=== PATIENT | female | born 1960 | race Caucasian/White ===

== ENCOUNTER 2024-05-31 21:56 | Emergency (ER) | payer OTHER, MEDICAID ==
[~2024-05-31] VITALS: Ht 154.9 cm; Wt 114.1 kg
--- NOTE | 2024-05-31 22:22 | ED.PDOC ---
HPI Comments 64y M who presents to the ED for chief complaint of chest pain. Pt states she has been having chest pain for the past 1 days. Pt states the pain is constant, sub-sternal, with pain radiating to the back, with associated exacerbating factor of exertion and no relieving factors. Pt states it feels like "elephant is sitting on her chest." Pt denies any past cardiac history but states she was recently evaluated by plastics plater after PCP referred pt after having abnormal EKG. Pt states she has stress test and full evaluation done. Pt otherwise has noted BP of 159/100 with all other vitals in normal range. Pt otherwise denies any other symptoms at this time. 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 History: Denies all REFINERY OPERATOR ALKYLATION Hx Family History Family History: Unknown Social History Smoker: Non-Smoker Alcohol: Denies ETOH Use Drugs: Denies Drug Use Lives In: Home Constitutional: denies: chills, diaphoresis, fatigue, fever, malaise, sweats, weakness, others EENTM: denies: blurred vision, double vision, ear bleeding, ear discharge, ear drainage, ear pain, ear ringing, eye pain, eye redness, hearing loss, mouth pain, mouth swelling, nasal discharge, nose bleeding, nose congestion, nose pain, photophobia, tearing, throat pain, throat swelling, voice changes, others Respiratory: denies: cough, hemoptysis, orthopnea, SOB at rest, shortness of breath, SOB with excertion, stridor, wheezing, others Cardiovascular: reports: chest pain; denies: dizzy spells, diaphoresis, Dyspnea on exertion, edema, irregular heart beat, left arm pain, lightheadedness, palpitations, PND, syncope, others Gastrointestinal: denies: abdomen distended, abdominal pain, blood streaked bowels, constipated, diarrhea, dysphagia, difficulty swallowing, hematemesis, melena, nausea, poor appetite, poor fluid intake, rectal bleeding, rectal pain, vomiting, others Genitourinary: denies: abnormal vagina bleeding, burning, dyspareunia, dysuria, flank pain, frequency, hematuria, incontinence, pain, , vagina discharge, urgency, others Neurological: denies: dizziness, fainting, headache, left sided numbness, left sided weakness, numbness, paresthesia, pre-existing deficit, right sided numbness, right sided weakness, seizure, speech problems, tingling, tremors, weakness, others Musculoskeletal: denies: back pain, gout, joint pain, joint swelling, muscle pain, muscle stiffness, neck pain, others Integumetry: denies: bruises, change in color, change in hair/nails, dryness, laceration, lesions, lumps, rash, wounds, others Allergic/Immunocompromised: denies: Difficulty Healing, Frequent Infections, Hives, Itching, others Hematologic/Lymphatic: denies: anemia, blood clots, easy bleeding, easy bruising, swollen glands, others Endocrine: denies: excessive hunger, excessive sweating, excessive thirst, excessive urination, flushing, intolerance to cold, intolerance to heat, unexplained weight gain, unexplained weight loss, others Psychiatric: denies: anxiety, bipolar disorder, depression, hopeless, panic disorder, schizophrenia, sleepless, suicidal, others Was a procedure done? Was a procedure done?: No CP Differential Dx Differential Diagnosis: A-fib, A-Flutter, Angina, Anxiety / Panic Attack, Electrolyte Disorder, Heart Failure, PVC's Other Differential Diagnosis acute coronary syndrome. Differential Diagnosis: Chest Wall Pain, Costochondritis X-Ray, Labs, Meds, VS Vital Signs Date Time Temp Pulse Resp B/P (MAP) Pulse Ox O2 Delivery O2 Flow Rate FiO2 05/31/24 22:00 97.5 59 20 159/100 (119) 98 Lab Test 05/31/24 22:04 Range/Units Troponin I High Sensitivity Pending Time of 1ST Reevaluation: 22:50 Reevaluation 1ST: Unchanged Patient Education/Counseling: Diagnosis, Treatment Family Education/Counseling: No Family Present Stability Stability form required: No Heart Score Heart Score: Heart Score Response (Comments) Value History Slightly Suspicious 0 Age 45-64 1 Risk Factors No known risk factors 0 Total 1 I personally scribed for ADEBAYO POZO MD ([email or web address]) on 05/31/24 at 22:22. Electronically submitted by Ciro Lopez ([email or web address]). I personally scribed for ADEBAYO POZO MD ([email or web address]) on 05/31/24 at 22:24. Electronically submitted by Ciro Lopez ([email or web address]). ADEBAYO POZO MD May 31, 2024 22:22
--- NOTE | 2024-05-31 22:26 | ED.PDOC ---
HPI Comments 64y F who presents to the ED for chief complaint of chest pain. Pt states she has been having chest pain for the past 1 days. Pt states the pain is constant, sub-sternal, with pain radiating to the back, with associated exacerbating factor of exertion and no relieving factors. Pt states it feels like "elephant is sitting on her chest." Pt denies any past cardiac history but states she was recently evaluated by retaining room cutter after PCP referred pt after having abnormal EKG. Pt states she has stress test and full evaluation done. Pt otherwise has noted BP of 159/100 with all other vitals in normal range. Pt otherwise denies any other symptoms at this time. 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: 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 all TREE PULLER Hx Family History Family History: Unknown Social History Smoker: Non-Smoker Alcohol: Denies ETOH Use Drugs: Denies Drug Use Lives In: Home Constitutional: denies: chills, diaphoresis, fatigue, fever, malaise, sweats, weakness, others EENTM: denies: blurred vision, double vision, ear bleeding, ear discharge, ear drainage, ear pain, ear ringing, eye pain, eye redness, hearing loss, mouth pain, mouth swelling, nasal discharge, nose bleeding, nose congestion, nose pain, photophobia, tearing, throat pain, throat swelling, voice changes, others Respiratory: denies: cough, hemoptysis, orthopnea, SOB at rest, shortness of breath, SOB with excertion, stridor, wheezing, others Cardiovascular: reports: chest pain; denies: dizzy spells, diaphoresis, Dyspnea on exertion, edema, irregular heart beat, left arm pain, lightheadedness, palpitations, PND, syncope, others Gastrointestinal: denies: abdomen distended, abdominal pain, blood streaked bowels, constipated, diarrhea, dysphagia, difficulty swallowing, hematemesis, melena, nausea, poor appetite, poor fluid intake, rectal bleeding, rectal pain, vomiting, others Genitourinary: denies: abnormal vagina bleeding, burning, dyspareunia, dysuria, flank pain, frequency, hematuria, incontinence, pain, , vagina discharge, urgency, others Neurological: denies: dizziness, fainting, headache, left sided numbness, left sided weakness, numbness, paresthesia, pre-existing deficit, right sided numbness, right sided weakness, seizure, speech problems, tingling, tremors, weakness, others Musculoskeletal: denies: back pain, gout, joint pain, joint swelling, muscle pain, muscle stiffness, neck pain, others Integumetry: denies: bruises, change in color, change in hair/nails, dryness, laceration, lesions, lumps, rash, wounds, others Allergic/Immunocompromised: denies: Difficulty Healing, Frequent Infections, Hives, Itching, others Hematologic/Lymphatic: denies: anemia, blood clots, easy bleeding, easy bruising, swollen glands, others Endocrine: denies: excessive hunger, excessive sweating, excessive thirst, excessive urination, flushing, intolerance to cold, intolerance to heat, unexplained weight gain, unexplained weight loss, others Psychiatric: denies: anxiety, bipolar disorder, depression, hopeless, panic disorder, schizophrenia, sleepless, suicidal, others All Other Systems: Reviewed and Negative Physical Exam General Appearance: Moderate Distress (Due to chest pain concerns.), Obese HEENT: Normal ENT Inspection, Pharynx Normal, TMs Normal Neck: Full Range of Motion, Non-Tender, Normal, Normal Inspection Respiratory: Chest Non-Tender, Lungs Clear, No Accessory Muscle Use, No Respiratory Distress, Normal Breath Sounds Cardiovascular: Bradycardia, No Edema, No JVD, No Murmur, No Gallop, Normal Peripheral Pulses Breast Exam: Deferred Gastrointestinal: No Organomegaly, Non Tender, No Pulsatile Mass, Normal Bowel Sounds, Soft Genitalia: Deferred Pelvic: Deferred Rectal: Deferred Extremities: No calf tenderness, Normal capillary refill, Normal inspection, Normal range of motion, Non-tender, No pedal edema Neurologic: Alert, No Motor Deficits, Normal Affect, Normal Mood, No Sensory Deficits Cerebellar Function: Normal Reflexes: Normal Skin: Dry, Normal Color, Warm Lymphatic: No Adenopathy Was a procedure done? Was a procedure done?: No CP Differential Dx Differential Diagnosis: A-fib, A-Flutter, Angina, Anxiety / Panic Attack, Atrial Dysrhythmia, Heart Failure, PVC's, Other (Sick sinus syndrome) Other Differential Diagnosis acute coronary syndrome, Differential Diagnosis: HTN Essential, HTN Accelerated, Medical NonCompliance Differential Diagnosis: Angina, Chest Wall Pain X-Ray, Labs, Meds, VS Vital Signs Date Time Temp Pulse Resp B/P (MAP) Pulse Ox O2 Delivery O2 Flow Rate FiO2 06/01/24 05:48 47 11 100 Room Air 06/01/24 05:48 97.6 47 11 138/89 (105) 100 97.6 06/01/24 02:10 48 20 100 Room Air* 0 21 06/01/24 02:09 98.4 48 20 156/75 (102) 100 98.4 06/01/24 01:06 45 05/31/24 23:15 48 05/31/24 22:05 57 05/31/24 22:00 97.5 59 20 159/100 (119) 98 Lab Test 05/31/24 22:52 05/31/24 22:04 05/31/24 05:00 Range/Units D-Dimer, Quantitative 4.37 H 0.0-0.49 mg/L FEU Sodium Level 137 136-145 mmol/L Potassium Level 5.2 H 3.5-5.1 mmol/L Chloride Level 107 98-107 mmol/L Carbon Dioxide Level 24 20-31 mmol/L Anion Gap 6 5-15 Blood Urea Nitrogen 10 9-23 mg/dL Creatinine 0.84 0.550-1.02 mg/dL Glomerular Filtration Rate Calc 79 >90 mL/min BUN/Creatinine Ratio 11.9 10.0-20.0 Serum Glucose 99 74-106 mg/dL Calcium Level 10.2 8.7-10.4 mg/dL Total Bilirubin < 0.2 L 0.2-1.0 mg/dL Aspartate Amino Transferase (AST) 19 13-40 U/L Alanine Aminotransferase (ALT) 11 7-40 U/L Alkaline Phosphatase 139 H 46-116 U/L Troponin I High Sensitivity 5 5 </=34 ng/L Total Protein 7.4 5.7-8.2 g/dL Albumin 4.1 3.2-4.8 g/dL White Blood Count 9.2 4.4-10.8 10^3/uL Red Blood Count 4.49 4.0-5.20 10^6/uL Hemoglobin 13.5 12.2-16.2 g/dL Hematocrit 40.4 36.0-46.0 % Mean Corpuscular Volume 90.1 80.0-100.0 fL Mean Corpuscular Hemoglobin 30.0 28.0-32.0 pg Mean Corpuscular Hemoglobin Concent 33.4 32.0-36.0 g/dL Red Cell Distribution Width 16.6 H 11.8-14.3 % Platelet Count 299 140-450 10^3/uL Mean Platelet Volume 8.5 6.9-10.8 fL Neutrophils (%) (Auto) 41.4 37.0-80.0 % Lymphocytes (%) (Auto) 47.5 10.0-50.0 % Monocytes (%) (Auto) 7.4 0.0-12.0 % Eosinophils (%) (Auto) 3.0 0.0-7.0 % Basophils (%) (Auto) 0.7 0.0-2.0 % Neutrophils # (Auto) 3.8 1.6-8.6 10 ^3/uL Lymphocytes # (Auto) 4.4 0.4-5.4 10 ^3/uL Monocytes # (Auto) 0.7 0-1.3 10 ^3/uL Eosinophils # (Auto) 0.3 0-0.8 10 ^3/uL Basophils # (Auto) 0.1 0-0.2 10 ^3/uL Nucleated Red Blood Cells 0.4 % B-Type Natriuretic Peptide 252.30 0-100 pg/mL Urine Color Straw Yellow Urine Clarity Clear Clear Urine pH 6.5 5.0-9.0 Urine Specific [place] 1.008 1.001-1.035 Urine Protein Negative Negative Urine Ketones Negative Negative Urine Blood Negative Negative /uL Urine Nitrite Negative Negative Urine Bilirubin Negative Negative Urine Urobilinogen Normal Negative mg/dL Urine Leukocyte Esterase Negative Negative /uL Urine RBC 1 0 - 4 /hpf Urine WBC <1 0 - 5 /hpf Urine Squamous Epithelial Cells Few <5 /hpf Urine Bacteria None seen None Seen /hpf Urine Glucose Normal Normal mg/dL Current Medications Medications (Trade) Dose Ordered Sig/Sayda Route Start Time Stop Time Status Last Admin Aspirin (Ecotrin Enteric Coated Tablet) 325 mg ONCE ONCE PO 06/01/24 02:30 06/01/24 02:31 DC 06/01/24 02:41 Ketorolac Tromethamine (Toradol Injection) 30 mg ONCE ONCE IV 06/01/24 02:30 06/01/24 02:31 DC 06/01/24 03:26 Enoxaparin Sodium (Lovenox) 40 mg ONCE ONCE SC 06/01/24 03:00 06/01/24 03:01 DC 06/01/24 03:27 X-Ray, Labs, Meds, VS Comment All studies performed the ED were evaluated by me personally. Several studies were pending at time of this note. Patient did have an elevated D-dimer and CT angio was pending at time of this note. Patient will be treated empirically with a dose of Lovenox to stave off any PD concerns. Patient's EKG revealed a sinus rhythm of 57 with atrial premature complexes, left axis deviation and and possible old anterior infarct. RI interval was 175 and QT interval was 408. Patient continuing to trend in the bradycardic range and got down to 48. Patient will be admitted for rule out of sick sinus syndrome, cardiac evaluation as well as evaluation of her CT angio. Time of 1ST Reevaluation: 02:58 Reevaluation 1ST: Improved Consultation: PCP, Cardiology Patient Education/Counseling: Diagnosis, Treatment Family Education/Counseling: Diagnosis, Treatment, No Family Present Departure 1 Departure Time of Disposition: 02:59 Impression: Primary Impression: Chest pain Additional Impressions: Elevated d-dimer Bradycardia Disposition: 09 ADMITTED INPATIENT Condition: Stable Discharged With: Self Critical Care Note Critical Care Time?: No Stability Stability form required: No Heart Score Heart Score: Heart Score Response (Comments) Value History Slightly Suspicious 0 EKG Repolarization Disturb 1 Age 45-64 1 Risk Factors 1 or 2 risk factors 1 Troponin Normal limit 0 Total 3 ADDENDUM ADDENDUM ADDENDUM Apparently the patient has insurance has changed. That information was brought to light after the patient was admitted by the treating physician team. Chrissie garcia's insurance apparently belongs to [employer] at this point and I was called by Dr. Minnie Santamaria. She did not recommend that patient be admitted. She said that she will discharge this patient to go and see her retaining room cutter as an outpatient. I personally scribed for FARHAN AUGUSTE PAC ([email or web address]) on 05/31/24 at 22:26. Electronically submitted by Ciro Lopez ([email or web address]). FARHAN AUGUSTE May 31, 2024 22:26 RON DIEZ MD Jun 01, 2024 07:14
[2024-05-31] MEDS ORDERED: NITROGLYCERIN 0.4 MG SL TAB SL ONE (23:00)
[2024-05-31 23:32] LABS: Basophils # (auto) 0.1 10 ^3/uL (0-0.2); Basophils % (auto) 0.7 % (0.0-2.0); Eosinophils # (auto) 0.3 10 ^3/uL (0-0.8); Hematocrit 40.4 % (36.0-46.0); Hemoglobin 13.5 g/dL (12.2-16.2); Lymphocytes # (auto) 4.4 10 ^3/uL (0.4-5.4); Lymphocytes % (auto) 47.5 % (10.0-50.0); Mean Corpuscular Hgb Conc. 33.4 g/dL (32.0-36.0); Mean Corpuscular Volume 90.1 fL (80.0-100.0); Monocytes # (auto) 0.7 10 ^3/uL (0-1.3); Monocytes % (auto) 7.4 % (0.0-12.0); Neutrophils # (auto) 3.8 10 ^3/uL (1.6-8.6); Neutrophils % (auto) 41.4 % (37.0-80.0); Nucleated Red Blood Cells % 0.4 %; Platelet Count (auto) 299 10^3/uL (140-450); Red Blood Cells 4.49 10^6/uL (4.0-5.20); Red Cell Distribution Width 16.6 % (11.8-14.3); White Blood Cell 9.2 10^3/uL (4.4-10.8)
[2024-05-31 23:32] LABS: Alanine Aminotransferase 11 U/L (7-40); Albumin 4.1 g/dL (3.2-4.8); Anion Gap 6 (5-15); Aspartate Aminotransferase 19 U/L (13-40); BUN/Creatinine Ratio 11.9 (10.0-20.0); Blood Urea Nitrogen 10 mg/dL (9-23); Calcium 10.2 mg/dL (8.7-10.4); Carbon Dioxide 24 mmol/L (20-31); Glucose 99 mg/dL (74-106); Sodium 137 mmol/L (136-145)
[2024-05-31 23:33] LABS: Total Protein 7.4 g/dL (5.7-8.2)
[2024-05-31 23:46] LABS: Alkaline Phosphatase 139 U/L (46-116); Bilirubin, Total < 0.2 mg/dL (0.2-1.0); Chloride 107 mmol/L (98-107); Potassium 5.2 mmol/L (3.5-5.1)
--- NOTE | 2024-06-01 01:52 | ECG ---
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
--- NOTE | 2024-06-01 01:52 | ECG ---
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
[2024-06-01 02:10] VITALS: PULSE 48; RESP 20; O2SAT 100
[2024-06-01] MEDS: ASPirin-EC 325mg tab PO ONE (02:41)
[2024-06-01] MEDS: KETOROLAC TROMETH 30 MG/ML 1ML VIAL IV ONE (02:41)
[2024-06-01] MEDS: IOHEXOL 350 MG/ML 100ML IJ ONE ×2 (03:00→03:18)
[2024-06-01] MEDS: ENOXAPARIN SOD 40 MG/0.4 ML SYRINGE SC ONE (03:27)
--- NOTE | 2024-06-01 04:50 | DVH ---
Examination: CTACH CLINICAL INDICATION: Elevated D-dimer COMPARISON: None. CONTRAST USED: Intravenous. TECHNIQUE: Axial images were obtained through the thorax with contrast. Appropriate 3D, MPR, CMPR, thick and thin MIP and VRT view were obtained from multiple phase reconstructions. CT scan done accor ding to ALARA (As Low as Reasonably Achievable). Multiplanar reconstructions were obtained. FINDINGS: Lower neck and thyroid: Appears normal. Atherosclerotic changes are seen involving the aorta and coronary arteries. Aneurysmal prominence of ascending thoracic aorta is seen measuring 41 mm. No evidence of dissection is seen. No mediastinal m asses or lymphadenopathy is seen Central pulmonary arteries appear unremarkable. The right and left main pulmonary arteries appear no rmal. No evidence of filling defect is seen. Moderate cardiomegaly. A solid nodule measuring 2 mm is seen in right lower lobe, image 154 series 5. [employer] FOLLOW-UP GUIDELINES Recommendation: Low-risk patients: no routine follow-up required High-risk patients: Suggest optional follow-up CT at 12 months. Rest of the Lung parenchyma appears u nremarkable. No pleural effusion is seen. No pericardial effusion is seen. Small sliding hiatus hernia is seen. Degenerative changes are seen in the thoracic spine. Visualized Upper Abdomen: Post cholecystectomy status. Incidentally detected 17 mm left renal [place] 1 simple cortical cyst. No follow-up is recommended as incidentally detected renal lesions are likel y benign. IMPRESSION: 1. No evidence of pulmonary arterial thromboembolism. 2. No evidence of aortic dissection is seen. 3. Atherosclerotic changes are seen involving the aorta and coronary arteries. 4. Aneurysmal prominence of ascending thoracic aorta. 5. Moderate cardiomegaly. 6. Additional chronic and/or ancillary findings as detailed above. 7. Suggest clinical correlation and follow-up as clinically deemed necessary. Electronically Signed 06/01/2024 04:49 Joleen Lloyd
[2024-06-01 05:24] LABS: Urine Bacteria None Seen /hpf (None Seen)
[2024-06-01 05:37] LABS: Urine Blood Negative /uL (Negative); Urine Clarity Clear (Clear); Urine Protein, UAD Negative (Negative); Urine Specific Gravity 1.008 (1.001-1.035); Urine Squamous Epithelial Cell FEW /hpf (<5); Urine Urobilinogen Normal (Negative); Urine WBC <1 /hpf (0 - 5); Urine pH 6.5 (5.0-9.0)
[2024-06-01 05:48] VITALS: BP 138/89; PULSE 47; RESP 11; TEMP 97.6; O2SAT 100
[2024-06-01 05:48] LABS: Urine Color STRAW (Yellow)
--- NOTE | 2024-06-01 07:19 | ECG ---
[facility] Test Date: 2024-05-31 Test Time: 22:05:39 Pat Name: DIANE BEAULIEU Department: ER Room: Gender: F Chick Sexer: ABBY : 1960 Requested By: FARHAN AUGUSTE Order Number: [id number] Reading MD: Measurements Intervals [place] Rate: 57 P: 15 MI: 175 QRS: -33 QRSD: 104 T: 59 QT: 408 QTc: 398 Interpretive Statements Sinus rhythm Atrial premature complexes in couplets Left axis deviation Consider anterior infarct Please click the below link to view image of tracing.
--- NOTE | 2024-06-01 09:02 | DVHDS2 ---
Physician Discharge Progress N Final Diagnosis: Chest pain, ACS ruled out Operations or Procedures: Operations or Procedures none Other Interventions Other Interventions lab results, EKG, CXR, CTA Consultations: Consultations none Commentary: Commentary 64 y.o. female arrived to the ED c/o one day of substernal chest pain radiating to her neck associated with some SOB. Her EKG showed bradycardia at 57. Troponin was checked twice both being at 5. DD was elevated and CTA was done to r/o PE. CTA showed: 1. No evidence of pulmonary arterial thromboembolism. 2. No evidence of aortic dissection is seen. 3. Atherosclerotic changes are seen involving the aorta and coronary arteries. 4. Aneurysmal prominence of ascending thoracic aorta. 5. Moderate cardiomegaly. 6. Additional chronic and/or ancillary findings as detailed above. 7. Suggest clinical correlation and follow-up as clinically deemed necessary. Patient had stable VS and was discharged home to f/u with her master dyer. The appointment will be scheduled by [facility] and coordinated with the patient tomorrow. Patient understood and agreed with the plan of care Condition on Discharge: Stable Disposition: Home SNF Discharge Will this Physician continue t: No Discharge Instructions: Diet: Cardiac 2g Na,low cholest Activity: No Restrictions, As Tolerated Follow Up/Referral: Outpatient cardiology appointment will be scheduled by [facility] medical management Medications: Continue home medications Follow Up Care: Discharge Statement: "Patient was advised to return to the ER or call 911 if any headaches, dizziness, shortness of breath, chest pain, abdominal pain, bleeding, fevers, or worsening of medical condition. Patient was counseled about treatment plan, medications, possible side effects, patientverbalized understanding. All questions were answered to the best of my ability. This discharge took greater then 30 minutes in planning, reviewing documentation, counseling the patient, and discussing with other team members." CLEMENCIA PANIAGUA MD Jun 01, 2024 09:02
== END 2024-06-01 07:55 | disposition home or self-care (01) ==
LOC: ER 21:56
DX: R00.1 Bradycardia, unspecified (principal); R07.9 Chest pain, unspecified; E78.41 Elevated Lipoprotein(a); R06.02 Shortness of breath
CPT/HCPCS: 36415; 71275; 80053; 81001; 83880; 84484; 85025; 85379; 93005; 96372; 96374; 99285; J1650; J1885; Q9967